=== PATIENT | female | born 1955 ===

== ENCOUNTER 2021-09-09 15:43 | Inpatient (IN) | payer OTHER ==
[~2021-09-09] VITALS: Ht 167.6 cm; Wt 85.7 kg
[2021-09-09] MEDS ORDERED: AMLO5TAB4 PO (15:59)
[2021-09-09] MEDS ORDERED: HALO5TAB PO ×2 (15:59)
[2021-09-09] MEDS ORDERED: LEVO50TA5 PO (15:59)
[2021-09-09] MEDS ORDERED: CLON0.5T4 PO (15:59)
[2021-09-09] MEDS ORDERED: TROL35.4 TP (15:59)
[2021-09-09] MEDS ORDERED: MELA10TA PO (15:59)
[2021-09-09] MEDS ORDERED: MAG HYDROX/AL HYDROX/SIMETH 30 ML ORAL.SUSP PO PRN (16:00)
[2021-09-09] MEDS ORDERED: MAGNESIUM HYDROXIDE 2,400 MG/30 ML ORAL.SUSP. PO PRN (16:00)
[2021-09-09] MEDS ORDERED: METHYL SALICYLATE/MENTHOL TOPICAL OINTMENT 57GM TUBE. TP PRN (16:00)
[2021-09-09 16:31] VITALS: BP 140/92
[2021-09-09] MEDS ORDERED: HALOPERIDOL 5 MG TABLET PO PRN (19:45)
[2021-09-09] MEDS: HALOPERIDOL 5 MG TABLET PO SCH ×3 (21:08→21:36)
[2021-09-09 22:00] LABS: BACTERIA,URINE MOD /HPF (0-FEW); CLARITY,URINE CLEAR; COLOR,URINE YELLOW; GLUCOSE,URINE NEG (NEG); NITRITE,URINE NEG (NEG); RBC,URINE OCC /HPF (0-2); SQUAMOUS EPITHELIAL CELL,UR MOD /LPF; UROBILINOGEN,URINE 0.2 mg/dL (0.2 mg/dL)
[2021-09-10 06:28] VITALS: BP 124/62
[2021-09-10] MEDS: HALOPERIDOL 5 MG TABLET PO SCH ×2 (09:00→14:11)
[2021-09-10 09:17] LABS: BASO % 0 % (0-3); EOS # 0.1 x10^3/uL (0.0-0.7); EOS % 3 % (0-3); HEMATOCRIT 34.3 % (36.0-47.0); HEMOGLOBIN 11.3 g/dL (12.0-15.5); LYMPH # 1.9 x10^3/uL (1.0-4.8); LYMPH % 33 % (24-48); MEAN CORPUSCULAR HEMOGLOBIN 27 pg (25-35); MEAN CORPUSCULAR HGB CONC 33 g/dL (31-37); MEAN CORPUSCULAR VOLUME 81 fL (79-100); MONO # 0.5 x10^3/uL (0.0-1.1); MONO % 8 % (0-9); NEUT # 3.2 x10^3uL (1.8-7.7); NEUT % 56 % (31-73); PLATELET COUNT 231 x10^3/uL (140-400); RED BLOOD COUNT 4.22 x10^6/uL (3.50-5.40); RED CELL DISTRIBUTION WIDTH 14.5 % (11.5-14.5); WHITE BLOOD COUNT 5.8 x10^3/uL (4.0-11.0)
[2021-09-10 09:29] LABS: ALBUMIN 2.9 g/dL (3.4-5.0); CALCIUM 8.4 mg/dL (8.5-10.1); CREATININE 0.6 mg/dL (0.6-1.0); GFR 100.6; MAGNESIUM 1.9 mg/dL (1.8-2.4); POTASSIUM 3.9 mmol/L (3.5-5.1); TOTAL BILIRUBIN 0.7 mg/dL (0.2-1.0); TOTAL PROTEIN 5.8 g/dL (6.4-8.2)
[2021-09-10] MEDS: amLODIPine BESYLATE 5 MG TABLET PO SCH (10:30)
[2021-09-10] MEDS ORDERED: LEVOTHYROXINE 50 MCG TABLET PO SCH (10:30)
[2021-09-10] MEDS ORDERED: TROLAMINE SALICYLATE 10% TOPICAL CREAM 85GM JAR. TP PRN (10:30)
[2021-09-10 16:25] VITALS: BP 135/77
[2021-09-10] MEDS ORDERED: HALOPERIDOL 5 MG TABLET PO PRN (16:30)
[2021-09-10] MEDS: LURASIDONE 40 MG TABLET. PO SCH (18:00)
[2021-09-10 19:17] LABS: CHOLESTEROL/HDL RATIO 4.3; THYROID STIM HORMONE (TSH) 0.757 uIU/mL (0.358-3.740)
[2021-09-10] MEDS: MELATONIN 3 MG TABLET PO PRN (20:05)
[2021-09-10 22:11] LABS: THYROXINE 8.4 ug/dL (4.5-12.0)
[2021-09-11 00:08] LABS: HEMOGLOBIN A1C 4.9 % (4.8-5.6)
--- NOTE | 2021-09-11 02:41 | CONS ---
DATE OF CONSULTATION: 09/10/2021 ATTENDING PHYSICIAN: Dr. Judge. We are asked to see the patient for medical consultation. HISTORY OF PRESENT ILLNESS: The patient is a 65-year-old female sent here from [facility] in [place], [place]. She recently moved there to be closer to her daughter. She has a longstanding diagnosis of schizoaffective disorder with dementia. She has been very agitated, paranoid, thinks that she was given heroin in the hospital, declining her meds, agitated, tearful, very impulsive, paranoid, and hallucinating. She is sent here for further adjustment of her medications. PAST MEDICAL HISTORY: Significant for permanent pacemaker. She also has metabolic encephalopathy, hypertension, hypothyroidism, and bipolar disease. CURRENT MEDICATIONS: Include amlodipine, clonazepam, Haldol, Synthroid, melatonin, and aloe vera. ALLERGIES: She has no known drug allergies. SOCIAL HISTORY: She is a nonsmoker, nondrinker. FAMILY HISTORY: Unobtainable. REVIEW OF SYSTEMS: Unobtainable. The patient is fairly alert and cooperative. PHYSICAL EXAMINATION: GENERAL: When I saw her, this is a pleasant, confused, middle-aged female. VITAL SIGNS: Showed a blood pressure of 124/62 mmHg, pulse is 60 and regular. She was afebrile. Oxygen saturation 94% on room air. HEENT: Head is without trauma. Pupils are reactive. Sclerae nonicteric. The oropharynx is clear. NECK: Supple. No bruits identified. LUNGS: Clear to auscultation. CARDIOVASCULAR: Showed regular heart tones. ABDOMEN: Soft. EXTREMITIES: Without edema. NEUROLOGIC: Pleasantly confused. Focally intact. PERTINENT LABORATORY STUDIES: Admission hemoglobin was 11.3 g/dL with a white count of 5800. Sodium 143 mEq, potassium 3.9 mEq/L. Creatinine 0.6 mg/dL. Transaminases were normal. ASSESSMENT: 1. This 65-year-old female from [place], has aggressive behavior and delusional paranoia. 2. Underlying schizoaffective disorder. 3. Bipolar disorder. 4. History of permanent pacemaker. 5. Essential hypertension, currently normotensive. 6. Hypothyroidism, on replacement. RECOMMENDATIONS: 1. This patient has been seen and I reviewed her medications and they should be continued the same dosage. 2. She is stable from a medical standpoint. Thank you again for asking me to see this patient for medical consultation. We shall gladly follow along during her inpatient stay. ELSA/HEMA/MYRIAM DR: Haleigh TID: [id number] CC: LEANDRO JUDGE MD
[2021-09-11] MEDS: LEVOTHYROXINE 50 MCG TABLET PO SCH (05:36)
[2021-09-11] MEDS: clonazePAM 0.5 MG TABLET PO PRN ×3 (05:41→22:04)
--- NOTE | 2021-09-11 06:13 | PSYEV ---
DATE OF SERVICE: 09/10/2021 REASON FOR ADMISSION: This 65-year-old female was admitted to inpatient program at [facility] as a transfer from [facility] where she was treated on the medical floor close to 4 weeks according to the patient. The patient states that she was there, mainly for the medication management. The patient also was getting upset being there, accusing of the staff that they are giving her heroin, refusing medications, not sleeping, also having audio and visual hallucinations, also impulsive and labile mood and periods of agitation. CHIEF COMPLAINT: My daughter made me to come here and I have been moving from place to place. Apparently, put me in the place for mental health in the recent past. I have been treated for schizoaffective disorder and they overdosed me on lithium in the past and then I stop taking lithium completely because of the reaction. The patient denies that she has any problems now and the staff reported in front of her that she is refusing to take her medications. The patient started squeezing with the staff stating that she did take her medications. HISTORY OF PRESENT ILLNESS: The patient is not able to give much information and most of the information obtained by reviewing the medical records from [facility]. The patient apparently was admitted there with multiple physical problems including hypertension, hypothyroidism, status post pacemaker, bradycardia and past history of lithium toxicity requiring dialysis. The patient also been diagnosed with schizophrenia and schizoaffective disorder. The patient apparently was in a long term home recently and was moved to [facility] Unit because of her behavior problems. The patient was also on ICU for several weeks. Apparently was discharged to rehab in the past. Since then, she has been living with her daughter. According to the daughter, since the discharge from the hospital, she has been declining medications and stopped eating and also drinking. The patient also having visual and auditory hallucinations. PAST PSYCHIATRIC HISTORY: The patient apparently has had treatment with multiple hospitalizations more than 10 according to her. Apparently, she moved from state to state because of her family members and apparently she has 3 children. The patient has a prior history of anxiety, dementia, depression, psychosis, and schizophrenia. The patient has taken Prozac, Haldol, melatonin, and Risperdal in the past and recently Haldol. CURRENT MEDICATIONS: Levothyroxine 50 mcg daily, Haldol 5 mg 3 times a day, amlodipine 5 mg daily, melatonin 6 mg at night p.r.n., clonazepam 0.5 mg q. 6 hours p.r.n. The patient states the longest hospitalization was 3 months. PSYCHOSOCIAL HISTORY: The patient states that recently she has been living with her daughter for almost 3 months. The patient denies of any alcohol abuse in the past, except when she was a teenager. The patient states she has eighth grade, she was , has 3 children. The patient denies of any alcohol use at this time. FAMILY PSYCHIATRIC HISTORY: The patient states her sister was diagnosed with bipolar disorder and also there is mental illness on the father's side of the family. HISTORY OF TRAUMA IN THE PAST: Denies. SUBSTANCE ABUSE HISTORY: The patient denies of any alcohol or drug abuse. PAST MEDICAL HISTORY: Essential hypertension, hypothyroidism, acute encephalopathy, elevated troponin, history of bradycardia and pacemaker. MENTAL STATUS EXAMINATION: The patient appeared to be of her stated age, moderately obese and was able to make eye contact. She has been staying in bed since admission and has been refusing medications. The patient since admission yesterday, slept about 9 hours. Her appetite decreased. The patient showed decreased psychomotor activity, was pleasant during the assessment. Speech clear with decreased rate and rhythm. Affect and mood, she denies of feeling depressed, also denies that she had any problems with hallucinations minimizing her problems. The patient apparently was treated with severe anxiety and psychotic symptoms and visual and auditory hallucinations while she was at the hospital prior to coming here. The patient currently denies of any visual or auditory hallucinations. The patient has no evidence of any psychotic symptoms. The patient is oriented to her surroundings. She knew that she was in the hospital. She knew it was August, close to the date cited and she knew the year first said 2022, corrected 2021. The patient was able to respond to questions. The patient apparently exhibiting some mild cognitive deficits. The patient is not confused at this time. The patient denies of having any suicidal or homicidal thoughts at this time. The patient's judgment impaired. Insight limited. The patient appears to be functioning on an average level of intelligence. STRENGTHS: Family is very supportive. Currently living with her daughter. The patient only has eighth grade education, but she states she has worked places in the past, was gainfully employed. WEAKNESSES: The patient is currently lacks insight to her problems. The patient apparently accusing the doctors giving her too much lithium and was overdosed and she has to be on dialysis few times. The patient admits that she has psychiatric problem, but not sure about the medications. Apparently, she refused her medications this admission. The patient seems to be paranoid and suspicious. The patient has difficulty talking about her past and also minimizing her current problems. ADMITTING DIAGNOSES: AXIS I: 1. Schizoaffective disorder, bipolar type, moderate. 2. Generalized anxiety disorder. 3. Mild cognitive disorder. AXIS II: None. AXIS III: Pacemaker, bradycardia, essential hypertension, encephalopathy. INITIAL TREATMENT PLAN: The patient to be admitted to the inpatient program at [facility]. The patient will have a physical exam. The patient's chart reviewed from [facility] also medications reviewed. The patient will be involved in individual and group therapy. The patient will be also encouraged to take her medications. The patient's medications changed. The patient will be on Haldol 5 mg 3 times a day p.r.n. and started on Latuda 80 mg after dinner. We will consider starting on a mood stabilizer after obtaining more information. LENGTH OF STAY: 7-[address]: Angel TID: [id number]
[2021-09-11 06:25] VITALS: BP 125/72
[2021-09-11] MEDS ORDERED: DIPHENOXYLATE/ATROPINE TABLET. PO PRN (06:45)
[2021-09-11] MEDS: amLODIPine BESYLATE 5 MG TABLET PO SCH (07:39)
[2021-09-11] MEDS: LURASIDONE 40 MG TABLET. PO SCH (16:06)
[2021-09-11 16:37] VITALS: BP 140/85
[2021-09-11] MEDS: MELATONIN 3 MG TABLET PO PRN (22:02)
--- NOTE | 2021-09-12 05:07 | PN ---
DATE: 09/11/2021 SUBJECTIVE: The patient was seen today, met with the staff, chart reviewed, and also covering for Dr. Farah. Also, discussed her diagnosis and treatment in treatment review meeting today. The patient continues to be isolating himself, also feeling lonely, and also upset being here. The patient is also emotionally labile and also showing significant cognitive deficits. OBSERVATION: VITAL SIGNS: Temperature 97.6, blood pressure 140/85, pulse 95, respirations 16, O2 sat 98%. The patient also observed to be sobbing in the hallway so loud. The patient also having difficulty identifying her feelings and problems. The patient is having difficulty recalling the past treatments except stating she was given lithium and had a reaction and asked to be on dialysis. The patient lacking insight to her problems. Slept about 6 hours last night. CURRENT MEDICATIONS: No change in her medications. LABORATORY DATA: The patient's lab reviewed. ASSESSMENT: 1. Bipolar disorder, mixed, moderate to severe. 2. Cognitive disorder, unspecified. 3. Generalized anxiety disorder. PLAN: Continue with the current treatment. LENGTH OF STAY: 7-10 days. GISELLA/LYNNE DR: Angel TID: [id number]
[2021-09-12] MEDS: LEVOTHYROXINE 50 MCG TABLET PO SCH (05:14)
[2021-09-12 05:52] VITALS: BP 101/66
[2021-09-12] MEDS: amLODIPine BESYLATE 5 MG TABLET PO SCH (09:00)
[2021-09-12 15:32] VITALS: BP 159/80
[2021-09-12] MEDS: LURASIDONE 40 MG TABLET. PO SCH (17:34)
[2021-09-12] MEDS: LITHIUM CARBONATE 300 MG TABLET PO SCH (20:01)
[2021-09-12] MEDS: MELATONIN 3 MG TABLET PO PRN (23:12)
--- NOTE | 2021-09-13 04:17 | PN ---
DATE: 09/12/2021 SUBJECTIVE: The patient was seen today, met with the staff. Chart was reviewed and also discussed with one of the staff. Apparently, daughter called stating that the patient did well on lithium, would like to start her back on lithium 300 mg twice a day. The patient also states she is feeling better since she has been taking Latuda 80 mg daily. The patient's behavior has improved over the past 24 hours. The patient has agreed to take the lithium and she is aware of past problems with lithium toxicity. OBSERVATION: VITAL SIGNS: Temperature 97.7, blood pressure 159/80, pulse 104, respirations 20, O2 sat 96%. GENERAL: The patient slept about 5 hours last night. CURRENT MEDICATIONS: [place] carbonate 300 mg twice a day started today at the request of her daughter and also patient is in agreement. Also, I will check the lithium level tomorrow. Latuda 80 mg daily, Haldol 5 mg t.i.d. p.r.n., melatonin 6 mg at night p.r.n., clonazepam 0.5 mg q. 6 hours p.r.n. The patient is not having any side effects. LABORATORY DATA: The patient's lab reviewed. The patient's hemoglobin 11.3. The patient's electrolytes were within the normal range. The patient's triglycerides 160. Cholesterol 173, LDL 101, HDL 40. ASSESSMENT: 1. Bipolar disorder, mixed, moderate to severe. 2. Cognitive disorder, unspecified. 3. Generalized anxiety disorder. PLAN: To continue with treatment. LENGTH OF STAY: 7-[address]: Angel TID: [id number]
[2021-09-13] MEDS: LEVOTHYROXINE 50 MCG TABLET PO SCH (05:10)
[2021-09-13 05:46] VITALS: BP 159/79
[2021-09-13] MEDS: LITHIUM CARBONATE 300 MG TABLET PO SCH ×2 (09:00→20:17)
[2021-09-13] MEDS: amLODIPine BESYLATE 5 MG TABLET PO SCH (09:00)
[2021-09-13 16:06] VITALS: BP 100/71
[2021-09-13] MEDS: LURASIDONE 40 MG TABLET. PO SCH (17:14)
[2021-09-13] MEDS: clonazePAM 0.5 MG TABLET PO PRN (20:18)
[2021-09-13] MEDS: ACETAMINOPHEN 325 MG TABLET PO PRN (20:23)
--- NOTE | 2021-09-14 02:41 | PN ---
DATE: 09/13/2021 SUBJECTIVE: The patient was seen today, met with the staff. Chart was reviewed. I am covering for Dr. Farah. Staff reports no major change in her behavior. She is still withdrawn to her room. Able to socialize minimally. The patient also continues to have the mood swings and also exhibiting issues with the impulse control. She is also experiencing high level of anxiety. OBSERVATION: VITAL SIGNS: Stable. GENERAL: The patient is sleeping well. Appetite normal. CURRENT MEDICATIONS: The patient was started on lithium 300 mg twice a day and she took one dose last night and the lithium was checked this morning, it was only 0.2. Today, she will be receiving 2 doses of lithium and will monitor closely because of the patient's prior history of lithium toxicity. The patient is continued on Latuda 80 mg daily and Haldol 5 mg t.i.d. p.r.n., melatonin 6 mg at night p.r.n. and clonazepam 0.5 mg q. 6 hours p.r.n. She is not having any side effects to medications. LABORATORY DATA: The patient's lab reviewed. ASSESSMENT: 1. Bipolar disorder, mixed, moderate to severe. 2. Cognitive disorder, unspecified. 3. Generalized anxiety disorder. PLAN: To continue with the treatment. LENGTH OF STAY: 7-[address]: Angel TID: [id number]
[2021-09-14] MEDS: LEVOTHYROXINE 50 MCG TABLET PO SCH (05:13)
[2021-09-14 05:52] VITALS: BP 124/72
[2021-09-14] MEDS: amLODIPine BESYLATE 5 MG TABLET PO SCH (07:25)
[2021-09-14] MEDS: LITHIUM CARBONATE 300 MG TABLET PO SCH ×2 (08:25→20:44)
[2021-09-14 15:55] VITALS: BP 112/59
[2021-09-14] MEDS: LURASIDONE 40 MG TABLET. PO SCH (17:43)
[2021-09-14] MEDS: clonazePAM 0.5 MG TABLET PO PRN (20:45)
[2021-09-14] MEDS: ACETAMINOPHEN 325 MG TABLET PO PRN (20:45)
--- NOTE | 2021-09-15 01:35 | PN ---
DATE: 09/14/2021 SUBJECTIVE: The patient was seen today, met with the staff, chart reviewed. Covering for Dr. Mckay. The patient is showing improvement, pleasant, interacting with the staff and other residents. She is compliant with the medications. OBSERVATION: VITAL SIGNS: Temperature 97.8, blood pressure 124/72, pulse 70, respirations 18, O2 sat 96%. GENERAL: Slept about 8 hours last night. The patient's appetite is normal. CURRENT MEDICATIONS: [place] carbonate 300 mg twice a day and not having any side effects. The patient will continue on the Latuda 80 mg daily and Haldol 5 mg 3 times a day p.r.n., melatonin 6 mg at night p.r.n. and clonazepam 0.5 mg q. 6 hours p.r.n. The patient is not exhibiting any side effects to medications. LABORATORY DATA: Reviewed. ASSESSMENT: 1. Bipolar disorder, mixed, [id number]. 2. Cognitive disorder, unspecified. 3. Generalized anxiety disorder. PLAN: To continue with the treatment. LENGTH OF STAY: 7 to [address]: Angel TID: [id number] CC: MARC MCKAY MD
[2021-09-15 05:30] VITALS: BP 115/61
[2021-09-15] MEDS: LEVOTHYROXINE 50 MCG TABLET PO SCH (05:38)
[2021-09-15] MEDS: amLODIPine BESYLATE 5 MG TABLET PO SCH (08:57)
[2021-09-15] MEDS: LITHIUM CARBONATE 300 MG TABLET PO SCH ×2 (08:57→20:19)
[2021-09-15] MEDS: PANTOPRAZOLE 40 MG TABLET. PO SCH (08:57)
[2021-09-15] MEDS: ACETAMINOPHEN 325 MG TABLET PO PRN ×2 (09:04→20:20)
[2021-09-15 16:10] VITALS: BP 139/82
[2021-09-15] MEDS: LURASIDONE 40 MG TABLET. PO SCH (17:22)
[2021-09-15] MEDS: clonazePAM 0.5 MG TABLET PO PRN (20:20)
--- NOTE | 2021-09-15 23:36 | PN ---
DATE: 09/15/2021 SUBJECTIVE: The patient was seen today, met with the staff. Chart was reviewed and covering for Dr. Farah. The patient's behavior fluctuates. Staff reports she is upset because she was having nightmares last night. She thinks this is due to lithium. The patient also admits she had nightmares in the past too. The patient is compliant with the medications and participating in all the activities. OBSERVATION: VITAL SIGNS: Temperature 97.8, blood pressure 139/82, pulse 93, respirations 20, O2 sat 96%. GENERAL: The patient's appetite normal. She slept about 6 hours last night. CURRENT MEDICATIONS: [place] carbonate 300 mg twice a day, Latuda 80 mg daily and Haldol 5 mg 3 times a day p.r.n., melatonin 6 mg at night p.r.n. and clonazepam 0.5 mg q. 6 hours p.r.n. The patient is not having any side effects to medications. LABORATORY DATA: The patient's lab reviewed. ASSESSMENT: 1. Bipolar disorder, mixed, moderate to severe. 2. Cognitive disorder, unspecified. 3. Generalized anxiety disorder. PLAN: To continue with treatment. The patient's serum level to be checked tomorrow. LENGTH OF STAY: [address]: Angel TID: [id number]
[2021-09-16] MEDS: LEVOTHYROXINE 50 MCG TABLET PO SCH (05:29)
[2021-09-16 05:34] VITALS: BP 123/74
[2021-09-16 06:10] LABS: BASO # 0.1 x10^3/uL (0.0-0.2); BASO % 1 % (0-3); EOS # 0.2 x10^3/uL (0.0-0.7); EOS % 3 % (0-3); HEMATOCRIT 34.4 % (36.0-47.0); HEMOGLOBIN 11.5 g/dL (12.0-15.5); LYMPH # 2.4 x10^3/uL (1.0-4.8); LYMPH % 42 % (24-48); MEAN CORPUSCULAR HEMOGLOBIN 27 pg (25-35); MEAN CORPUSCULAR HGB CONC 33 g/dL (31-37); MEAN CORPUSCULAR VOLUME 82 fL (79-100); MONO # 0.5 x10^3/uL (0.0-1.1); MONO % 9 % (0-9); NEUT # 2.6 x10^3uL (1.8-7.7); NEUT % 46 % (31-73); PLATELET COUNT 251 x10^3/uL (140-400); RED BLOOD COUNT 4.22 x10^6/uL (3.50-5.40); WHITE BLOOD COUNT 5.7 x10^3/uL (4.0-11.0)
[2021-09-16 06:25] LABS: ALBUMIN 2.9 g/dL (3.4-5.0); CREATININE 0.7 mg/dL (0.6-1.0); GFR 84.2; POTASSIUM 4.2 mmol/L (3.5-5.1); TOTAL BILIRUBIN 0.6 mg/dL (0.2-1.0); TOTAL PROTEIN 5.8 g/dL (6.4-8.2)
[2021-09-16] MEDS: PANTOPRAZOLE 40 MG TABLET. PO SCH (07:15)
[2021-09-16] MEDS: amLODIPine BESYLATE 5 MG TABLET PO SCH (07:15)
[2021-09-16] MEDS: LITHIUM CARBONATE 300 MG TABLET PO SCH ×2 (07:15→20:13)
[2021-09-16 16:05] VITALS: BP 133/76
[2021-09-16] MEDS: LURASIDONE 40 MG TABLET. PO SCH (16:26)
[2021-09-16] MEDS: clonazePAM 0.5 MG TABLET PO PRN (20:18)
[2021-09-16] MEDS: ACETAMINOPHEN 325 MG TABLET PO PRN (20:18)
== END 2021-09-17 | disposition home health service (06) | DRG 885 ==
LOC: GEROPSY 15:43
PROVIDERS: ADMIT Psychiatry & Neurology Psychiatry; ATTEND Psychiatry & Neurology Psychiatry
DX: F25.0 Schizoaffective disorder, bipolar type (principal); G93.40 Encephalopathy, unspecified; Z99.2 Dependence on renal dialysis; E03.9 Hypothyroidism, unspecified; F03.90 Unspecified dementia, unspecified severity, without behavioral disturbance, psychotic disturbance, mood disturbance, and anxiety; F09 Unspecified mental disorder due to known physiological condition; F41.1 Generalized anxiety disorder; I10 Essential (primary) hypertension; T43.595A Adverse effect of other antipsychotics and neuroleptics, initial encounter; Z95.0 Presence of cardiac pacemaker; E66.9 Obesity, unspecified; Y92.89 Other specified places as the place of occurrence of the external cause; Z20.822 Contact with and (suspected) exposure to COVID-19; Z79.899 Other long term (current) drug therapy; Z68.30 Body mass index [BMI] 30.0-30.9, adult
CPT/HCPCS: 36415; 80053; 80061; 80178; 81001; 82306; 83036; 83540; 83550; 83735; 84436; 84443; 84480; 85025; 85379; 86592; 87086; 93005; 97110; 97116